=== PATIENT | male | born 1980 | race Caucasian/White ===

== ENCOUNTER → 2016-06-25 | Outpatient (CLI) | payer OTHER ==
[~2016-06-25] MED LIST: CIPR-9 PO; CLON1TAB PO; LEVE500 PO; METH10SO PO; METH5SOL3 PO; SERT-132 PO; VALP250C PO; VENTAER INH; ZOLP10TA3 PO; ZONI25CA2 PO; flonase
== END ==
LOC: CLAB 08:39
PROVIDERS: ATTEND Physician Assistant Medical
DX: R56.9 Unspecified convulsions (principal)
CPT/HCPCS: 36415; 80164

== ENCOUNTER → 2016-08-11 | Outpatient (CLI) | payer OTHER ==
[~2016-08-11] MED LIST changes: -LEVE500 PO; -METH5SOL3 PO
[2016-08-11 12:36] LABS: ALKALINE PHOSPHATASE 94 U/L (45-117); ALT (GPT) 54 U/L (12-78); ANION GAP 5 MEQ/L (5-15); AST (GOT) 37 U/L (15-37); BICARBONATE 32.4 MEQ/L (21.0-32.0); BLOOD UREA NITROGEN 28 MG/DL (7-18); CHLORIDE 103 MEQ/L (98-107); GLOMERULAR FILTRATION RATE 75 ML/MIN (>89); GLUCOSE,FASTING 90 MG/DL (74-99); POTASSIUM 4.5 MEQ/L (3.5-5.1); SODIUM (NA) 140 MEQ/L (136-145); TOTAL BILIRUBIN ADULT 0.6 MG/DL (0.2-1.0)
== END ==
LOC: CLAB 11:49
PROVIDERS: ATTEND Family Medicine
DX: B19.20 Unspecified viral hepatitis C without hepatic coma (principal); F43.10 Post-traumatic stress disorder, unspecified; R56.9 Unspecified convulsions
CPT/HCPCS: 36415; 80053

== ENCOUNTER → 2016-08-29 | Outpatient (CLI) | payer OTHER | LOC: CLAB 13:00 | PROVIDERS: ATTEND Family Medicine | DX: R56.9 Unspecified convulsions (principal) | CPT/HCPCS: 36415; 80164 ==

== ENCOUNTER → 2016-09-17 | Outpatient (CLI) | payer OTHER ==
[~2016-09-17] MED LIST changes: -CIPR-9 PO
== END ==
LOC: CLAB 15:23
PROVIDERS: ATTEND Family Medicine
DX: F43.10 Post-traumatic stress disorder, unspecified (principal); B19.20 Unspecified viral hepatitis C without hepatic coma; F11.20 Opioid dependence, uncomplicated; R56.9 Unspecified convulsions
CPT/HCPCS: 36415; 84443

== ENCOUNTER → 2016-10-13 | Outpatient (CLI) | payer OTHER | LOC: CLAB 09:43 | PROVIDERS: ATTEND Family Medicine | DX: R56.9 Unspecified convulsions (principal) | CPT/HCPCS: 36415; 80164 ==

== ENCOUNTER → 2016-11-19 | Outpatient (CLI) | payer OTHER ==
[~2016-11-19] MED LIST changes: -METH10SO PO
== END ==
LOC: CLAB 08:13
PROVIDERS: ATTEND Specialist
DX: R56.9 Unspecified convulsions (principal)
CPT/HCPCS: 36415; 80164

== ENCOUNTER → 2016-12-09 | Outpatient (CLI) | payer OTHER ==
[~2016-12-09] MED LIST changes: +AMOX500T PO
== END ==
LOC: CLAB 10:09
PROVIDERS: ATTEND Family Medicine
DX: L03.032 Cellulitis of left toe (principal)
CPT/HCPCS: 86403; 87070; 87205

== ENCOUNTER → 2016-12-12 | Outpatient (CLI) | payer OTHER | LOC: CLAB 11:38 | PROVIDERS: ATTEND Family Medicine | DX: R56.9 Unspecified convulsions (principal) | CPT/HCPCS: 36415; 80164 ==

== ENCOUNTER → 2017-01-05 | Outpatient (CLI) | payer OTHER ==
[2017-01-05 10:03] LABS: AUTOMATED NEUTROPHIL # 0.7 TH/MM3 (1.8-7.7); BASOPHIL # 0.1 TH/MM3 (0-0.2); BASOPHIL % 2.1 % (0.0-2.0); EOSINOPHIL # 0.4 TH/MM3 (0-0.4); EOSINOPHIL % 13.5 % (0.0-4.0); HEMATOCRIT 36.4 % (39.0-51.0); LYMPH % 43.4 % (9.0-44.0); LYMPHOCYTE # 1.3 TH/MM3 (1.0-4.8); MEAN CELL VOLUME 88.3 FL (80.0-100.0); MEAN CORPUSCULAR HEMOGLOBIN 29.6 PG (27.0-34.0); MEAN CORPUSCULAR HGB CONC 33.5 % (32.0-36.0); MONO % 16.3 % (0.0-8.0); NEUT % 24.7 % (16.0-70.0); PLATELET COUNT 160 TH/MM3 (150-450); RED BLOOD COUNT 4.12 MIL/MM3 (4.50-5.90); RED CELL DISTRIBUTION WIDTH 14.7 % (11.6-17.2); WHITE BLOOD COUNT 2.9 TH/MM3 (4.0-11.0)
[2017-01-05 10:15] LABS: HEMO FLAGS AUTO DIFF
[2017-01-05 11:00] LABS: EOSINOPHILS 8 % (0-4); PLATELET ESTIMATE SMEAR NORMAL (NORMAL); PLATELET MORPHOLOGY NORMAL (NORMAL); POLYS (SEG NEUTROPHILS) 34 % (16-70); SCAN/DIFF FINAL DIFF MANUAL; WBC DIFF SAMPLE 100
[2017-01-05 11:01] LABS: OVALOCYTES 1+ (NORMAL)
== END ==
LOC: CLAB 09:39
PROVIDERS: ATTEND Specialist
DX: F32.9 Major depressive disorder, single episode, unspecified (principal); B19.20 Unspecified viral hepatitis C without hepatic coma; F11.20 Opioid dependence, uncomplicated; F43.10 Post-traumatic stress disorder, unspecified; R56.9 Unspecified convulsions
CPT/HCPCS: 36415; 85007; 85027

== ENCOUNTER → 2017-03-05 | Outpatient (CLI) | payer OTHER ==
[~2017-03-05] MED LIST changes: -AMOX500T PO; -VENTAER INH
== END ==
LOC: CLAB 13:35
PROVIDERS: ATTEND Family Medicine
DX: R56.9 Unspecified convulsions (principal)
CPT/HCPCS: 36415; 80164

== ENCOUNTER → 2017-03-26 | Outpatient (CLI) | payer OTHER ==
[2017-03-26 14:05] LABS: AUTOMATED NEUTROPHIL # 1.5 TH/MM3 (1.8-7.7); EOSINOPHIL # 0.3 TH/MM3 (0-0.4); EOSINOPHIL % 9.2 % (0.0-4.0); HEMATOCRIT 37.3 % (39.0-51.0); HEMO FLAGS DIFF FINAL; LYMPH % 35.2 % (9.0-44.0); LYMPHOCYTE # 1.3 TH/MM3 (1.0-4.8); MEAN CELL VOLUME 87.6 FL (80.0-100.0); MEAN CORPUSCULAR HEMOGLOBIN 29.4 PG (27.0-34.0); MEAN CORPUSCULAR HGB CONC 33.6 % (32.0-36.0); MONO % 13.3 % (0.0-8.0); NEUT % 41.3 % (16.0-70.0); PLATELET COUNT 159 TH/MM3 (150-450); RED BLOOD COUNT 4.26 MIL/MM3 (4.50-5.90); RED CELL DISTRIBUTION WIDTH 14.9 % (11.6-17.2); WHITE BLOOD COUNT 3.7 TH/MM3 (4.0-11.0)
[2017-03-26 14:27] LABS: ANION GAP 3 MEQ/L (5-15); AST (GOT) 105 U/L (15-37); BICARBONATE 31.6 MEQ/L (21.0-32.0); BLOOD UREA NITROGEN 25 MG/DL (7-18); CHLORIDE 105 MEQ/L (98-107); GLOMERULAR FILTRATION RATE 84 ML/MIN (>89); GLUCOSE,FASTING 75 MG/DL (74-99); POTASSIUM 4.2 MEQ/L (3.5-5.1); SODIUM (NA) 140 MEQ/L (136-145)
[2017-03-26 14:29] LABS: ALT (GPT) 137 U/L (12-78)
[2017-03-26 14:31] LABS: ALKALINE PHOSPHATASE 91 U/L (45-117); TOTAL BILIRUBIN ADULT 0.5 MG/DL (0.2-1.0)
[2017-03-26 14:38] LABS: WESTERGREN SEDIMENTATION RATE 14 mm/hr (0-15)
== END ==
LOC: CLAB 13:30
PROVIDERS: ATTEND Specialist
DX: R53.81 Other malaise (principal); R53.83 Other fatigue
CPT/HCPCS: 36415; 80053; 82248; 85025; 85652

== ENCOUNTER → 2017-05-19 | Outpatient (CLI) | payer OTHER | LOC: CLAB 13:44 | PROVIDERS: ATTEND Specialist | DX: R56.9 Unspecified convulsions (principal) | CPT/HCPCS: 36415; 80164 ==